=== PATIENT | female | born 1985 | race Caucasian/White ===

== ENCOUNTER 2016-06-14 14:31 | Emergency (ER) | payer SELFPAY ==
[2016-06-14] MEDS ORDERED: NS 2,000 ML IV ONE (14:54)
[2016-06-14] MEDS ORDERED: IBUPROFEN 200 MG TAB PO ONE (14:54)
[2016-06-14] MEDS ORDERED: ACETAMINOPHEN 500 MG TAB PO ONE (14:54)
--- NOTE | 2016-06-14 14:56 | EDPHY ---
H & P - Medical/Surgical History Other PMH: denies - Social History Smoking Status: Never smoked Time Seen by Provider: 06/14/16 14:46 HPI/ROS: CHIEF COMPLAINT: Abdominal pain, flank pain, fever x5 days HISTORY OF PRESENT ILLNESS: 30-year-old immunocompetent female, history of frequent UTIs, complaining of 5 days of fever, right lower, right upper quadrant as well as right flank pain. Positive nausea. No vomiting. No dyspareunia. No dysuria. No increased frequency. Pain started when she was in [place], was seen at an urgent care while there for concerns over possible appendicitis. No imaging studies performed at that time. She was seen at [facility] today and referred to the emergency department for evaluation of possible appendicitis or ovarian pathology PRIMARY CARE PROVIDER: none REVIEW OF SYSTEMS: A ten point review of systems was performed and is negative with the exception of the items mentioned in the HPI PAST MEDICAL & SURGICAL HISTORY: frequent UTI SOCIAL HISTORY: nonsmoker PHYSICAL EXAM (Prior to examination, patient consented to physical exam, hands were washed and my usual and customary physical exam procedures followed) 1) GENERAL: Well-developed, well-nourished, alert and oriented. Appears nontoxic 2) HEAD: Normocephalic, atraumatic 3) HEENT: Pupils equal, round, reactive to light bilaterally. Sclera anicteric. 4) NECK: Full range of motion, no meningeal signs. 5) LUNGS: Clear auscultation bilaterally, no wheezes, no rhonchi, no retractions. 6) HEART: Regular rate and rhythm, no murmur, no heave, no gallop. 7) ABDOMEN: guarding right upper quadrant, tender to palpation right lower quadrant with positive McBurney's, tender to palpation right upper quadrant positive Robertson's. negative Rovsing's, negative peritoneal sign, 8) MUSCULOSKELETAL: Moving all extremities, no focal areas of tenderness, no obvious trauma. No peripheral edema or discoloration. 9) BACK: Positive rightCVA tenderness, no midline vertebral tenderness, no fluctuance, no step-off, no obvious trauma, no visual or palpable abnormality. 10) SKIN: No rash, no petechiae. 11) Psychiatric: Patient is oriented X 3, there is no agitation. DIFFERENTIAL DIAGNOSIS: My differential diagnosis includes, but is not limited to, acute appendicitis, acute cholecystitis, bowel obstruction, acute pancreatitis, ovarian torsion, nephrolithiasis, pyelonephritis,ectopic , gastritis and urinary tract infection. The patient understands that this diagnosis is provisional and can never be 100% accurate. This is a partial list of diagnoses considered. These considerations are based on history , physical exam, past history and reassessment. (Ernesto Nassar) Constitutional: Initial Vital Signs Temperature (C) 39 C H 06/14/16 14:50 Heart Rate 104 H 06/14/16 14:50 Respiratory Rate 18 06/14/16 14:50 Blood Pressure 129/72 H 06/14/16 14:50 O2 Sat (%) 99 06/14/16 14:50 O2 Delivery Mode Room Air Allergies/Adverse Reactions: Sulfa (Sulfonamide Antibiotics) Allergy (Verified 08/30/14 19:51) Home Medications: Medication Instructions Recorded Azo Bladder Control Capsule 08/30/14 Nitrofurantoin Macrobid [Macrobid] 100 mg PO BID #14 cap 08/30/14 Cephalexin [Keflex] 500 mg PO TID 7 Days 06/14/16 Medical Decision Making - Diagnostics Imaging Results: Imaging Impressions Abdomen Ultrasound 06/14/16 14:57 Impression: 1. No cholelithiasis or biliary ductal dilation. 2. Hepatomegaly and hepatic steatosis. 3. No hydronephrosis. 4. Appendix not identified. Consider CT abdomen/pelvis imaging if clinical concern. Findings and recommendations discussed with Emergency Department physicianErnesto at 16:26 hour, 06/14/2016. Final report concurs with initial preliminary interpretation. Pelvic/Renal Ultrasound 06/14/16 14:57 Impression: Normal ultrasound pelvis. Findings and recommendations discussed with Emergency Department physicianErnesto at 16:27 hour, 06/14/2016. Final report concurs with initial preliminary interpretation. Abdomen CT 06/14/16 16:29 Impression: 1. Right pyelonephritis without obstruction or cortical abscess. 2. Hepatomegaly with diffuse steatosis. 3. Normal vermiform appendix. Results discussed with Sage Lancaster at 5:07 PM. General information for patients regarding this examination can be found at [email or web address]. If you have questions or comments about this report, please contact me at (hospital) or [phone] (cell). CT abdomen and pelvis with IV contrast shows no kidney stone. There is edema in the fat around the right kidney. Normal appendix. This is reviewed by me and discussed with Dr. Hollingsworth (Sage Lancaster) ED Course/Re-evaluation: 4:30 p.m.: Patient re-evaluated. Discussed her imaging results. She has a nonvisualized appendix. Re-examined the patient she remains tender to palpation McBurney's point. Recommended CT imaging. Indications risks benefits discussed with patient she consents. 5:00 p.m.: Care turned over to Dr. Lancaster who will follow up on the patient's CT imaging. (Ernesto Nassar) Re-evaluation 5:10 p.m.--patient is stable. She feels well enough to go home. She and I discussed laboratory and imaging study results. We discussed treatment plan including criteria for return and importance of follow-up and further evaluation. She expresses understanding and agreement (Sage Lancaster) Differential Diagnosis: The concern was for possible appendicitis. She has a normal appendix. There is no evidence for kidney stone. She has evidence for pyelonephritis both in imaging and laboratory evaluation (Sage Lancaster) - Data Points Laboratory Results: Laboratory Results 06/14/16 15:02 06/14/16 15:02 06/14/16 06/14/16 06/14/16 15:50 15:02 15:02 WBC RBC Hgb Hct MCV MCH MCHC RDW Plt Count MPV Neut % (Auto) Lymph % (Auto) [place] % (Auto) Eos % (Auto) Baso % (Auto) Nucleat RBC Rel Count Absolute Neuts (auto) Absolute Lymphs (auto) Absolute Monos (auto) Absolute Eos (auto) Absolute Basos (auto) Absolute Nucleated RBC Immature Gran % Immature Gran # PT INR APTT VBG Lactic Acid Sodium 135 mEq/L mEq/L (134-144) Potassium 4.0 mEq/L mEq/L (3.5-5.2) Chloride 99 mEq/L mEq/L (97-110) Carbon Dioxide 22 mEq/l mEq/l (22-31) Anion Gap 14 mEq/L mEq/L (8-16) BUN 7 mg/dL mg/dL (7-23) Creatinine 0.7 mg/dL mg/dL (0.6-1.0) Estimated GFR > 60 Glucose 105 mg/dL H mg/dL (70-100) Calcium 9.2 mg/dL mg/dL (8.5-10.4) Total Bilirubin 1.0 mg/dL mg/dL (0.1-1.4) Conjugated Bilirubin 0.5 mg/dL mg/dL (0.0-0.5) Unconjugated Bilirubin 0.5 mg/dL mg/dL (0.0-1.1) AST 49 IU/L H IU/L (14-46) ALT 100 IU/L H IU/L (9-52) Alkaline Phosphatase 71 IU/L IU/L (38-126) Total Protein 7.3 g/dL g/dL (6.3-8.2) Albumin 4.3 g/dL g/dL (3.5-5.0) Lipase 23.0 IU/L IU/L (23-300) Beta HCG, Qual NEGATIVE Urine Color YELLOW Urine Appearance CLEAR Urine pH 6.0 (5.0-7.5) Ur Specific [place] 1.005 (1.002-1.030) Urine Protein NEGATIVE (NEGATIVE) Urine Ketones TRACE H (NEGATIVE) Urine Blood 1+ H (NEGATIVE) Urine Nitrate NEGATIVE (NEGATIVE) Urine Bilirubin NEGATIVE (NEGATIVE) Urine Urobilinogen NEGATIVE EU EU (0.2-1.0) Ur Leukocyte Esterase 1+ H (NEGATIVE) Urine RBC 1-3 /hpf /hpf (0-3) Urine WBC 15-25 /hpf H /hpf (0-3) Ur Epithelial Cells TRACE /lpf /lpf (NONE-1+) Urine Bacteria 3+ /hpf H /hpf (NONE SEEN) Urine Glucose NEGATIVE (NEGATIVE) 06/14/16 06/14/16 06/14/16 15:02 15:02 15:02 WBC 10.27 10^3/uL H 10^3/uL (3.80-9.50) RBC 4.05 10^6/uL L 10^6/uL (4.18-5.33) Hgb 13.1 g/dL g/dL (12.6-16.3) Hct 38.6 % % (38.0-47.0) MCV 95.3 fL fL (81.5-99.8) MCH 32.3 pg pg (27.9-34.1) MCHC 33.9 g/dL g/dL (32.4-36.7) RDW 12.4 % % (11.5-15.2) Plt Count 132 10^3/uL L 10^3/uL (150-400) MPV 9.5 fL fL (8.7-11.7) Neut % (Auto) 72.2 % % (39.3-74.2) Lymph % (Auto) 11.5 % L % (15.0-45.0) [place] % (Auto) 15.2 % H % (4.5-13.0) Eos % (Auto) 0.1 % L % (0.6-7.6) Baso % (Auto) 0.2 % L % (0.3-1.7) Nucleat RBC Rel Count 0.0 % % (0.0-0.2) Absolute Neuts (auto) 7.42 10^3/uL H 10^3/uL (1.70-6.50) Absolute Lymphs (auto) 1.18 10^3/uL 10^3/uL (1.00-3.00) Absolute Monos (auto) 1.56 10^3/uL H 10^3/uL (0.30-0.80) Absolute Eos (auto) 0.01 10^3/uL L 10^3/uL (0.03-0.40) Absolute Basos (auto) 0.02 10^3/uL 10^3/uL (0.02-0.10) Absolute Nucleated RBC 0.00 10^3/uL 10^3/uL (0-0.01) Immature Gran % 0.8 % % (0.0-1.1) Immature Gran # 0.08 10^3/uL 10^3/uL (0.00-0.10) PT 13.6 SEC SEC (12.0-15.0) INR 1.05 (0.83-1.16) APTT 32.6 SEC SEC (23.0-38.0) VBG Lactic Acid 1.0 mmol/L mmol/L (0.7-2.1) Sodium Potassium Chloride Carbon Dioxide Anion Gap BUN Creatinine Estimated GFR Glucose Calcium Total Bilirubin Conjugated Bilirubin Unconjugated Bilirubin AST ALT Alkaline Phosphatase Total Protein Albumin Lipase Beta HCG, Qual Urine Color Urine Appearance Urine pH Ur Specific [place] Urine Protein Urine Ketones Urine Blood Urine Nitrate Urine Bilirubin Urine Urobilinogen Ur Leukocyte Esterase Urine RBC Urine WBC Ur Epithelial Cells Urine Bacteria Urine Glucose Medications Given: Discontinued Medications Acetaminophen (Tylenol) 1,000 mg PO EDNOW ONE Stop: 06/14/16 14:55 Last Admin: 06/14/16 15:14 Dose: 1,000 mg Sodium Chloride (Ns) 2,000 mls @ 0 mls/hr IV ONCE ONE PRN Reason: Wide Open Stop: 06/14/16 14:55 Last Admin: 06/14/16 15:07 Dose: 2,000 mls Ceftriaxone Sodium/Dextrose (Rocephin 1 Gm (Premix)) 50 mls @ 100 mls/hr IV EDNOW ONE PRN Reason: Protocol Stop: 06/14/16 16:45 Last Admin: 06/14/16 16:32 Dose: 50 mls Ibuprofen (Motrin) 800 mg PO EDNOW ONE Stop: 06/14/16 14:55 Last Admin: 06/14/16 15:14 Dose: 800 mg Departure - Departure Disposition: Home, Routine, Self-Care Clinical Impression: Urinary tract infection Qualifiers: Urinary tract infection type: acute cystitis Hematuria presence: with hematuria Qualified Code(s): N30.01 - Acute cystitis with hematuria Condition: Good Instructions: Urinary Tract Infection in Women (ED) Additional Instructions: Return to the ER immediately if you experience fevers/chills, flu like symptoms , inability to tolerate oral intake, nausea or vomiting, or any other symptoms that concern you. Referrals: [facility],. [Clinic] - 1 day without fail Prescriptions: Cephalexin [Keflex] 500 mg PO TID 7 Days
[2016-06-14 15:19] LABS: % IMMATURE GRANULYOCYTES 0.8 % (0.0-1.1); ABSOLUTE IMMATURE GRANULOCYTES 0.08 10^3/uL (0.00-0.10); ADD DIFF? NO; ADD MORPH? NO; ADD SCAN? NO; ATYPICAL LYMPHOCYTE FLAG 0 (0-99); FRAGMENT RBC FLAG 0 (0-99); HEMATOCRIT 38.6 % (38.0-47.0); HEMOGLOBIN 13.1 g/dL (12.6-16.3); LEFT SHIFT FLG 30 (0-99); LIPEMIA HEMOLYSIS FLAG 90 (0-99); MEAN CELL HEMOGLOBIN 32.3 pg (27.9-34.1); MEAN CELL HEMOGLOBIN CONCENTR. 33.9 g/dL (32.4-36.7); MEAN CELL VOLUME 95.3 fL (81.5-99.8); MEAN PLATELET VOLUME 9.5 fL (8.7-11.7); PLATELET CLUMPS FLAG 10 (0-99); PLATELET COUNT 132 10^3/uL (150-400); RED BLOOD CELL COUNT 4.05 10^6/uL (4.18-5.33); RED CELL DISTRIBUTION WIDTH 12.4 % (11.5-15.2)
[2016-06-14 15:43] LABS: INR 1.05 (0.83-1.16); PROTIME(PATIENT) 13.6 SEC (12.0-15.0)
[2016-06-14 15:44] LABS: APTT 32.6 SEC (23.0-38.0)
[2016-06-14 15:47] LABS: ALANINE AMINOTRANSFERASE 100 IU/L (9-52); ALBUMIN 4.3 g/dL (3.5-5.0); ALKALINE PHOSPHATASE 71 IU/L (38-126); ANION GAP 14 mEq/L (8-16); ASPARTATE AMINOTRANSFERASE 49 IU/L (14-46); BILIRUBIN-CONJUGATED 0.5 mg/dL (0.0-0.5); BILIRUBIN-UNCONJUGATED 0.5 mg/dL (0.0-1.1); CALCIUM 9.2 mg/dL (8.5-10.4); CARBON DIOXIDE 22 mEq/l (22-31); CHLORIDE 99 mEq/L (97-110); CREATININE 0.7 mg/dL (0.6-1.0); GLOMERULAR FILTRATION RATE > 60; GLUCOSE 105 mg/dL (70-100); SODIUM 135 mEq/L (134-144); TOTAL PROTEIN 7.3 g/dL (6.3-8.2)
[2016-06-14 16:02] LABS: COLOR YELLOW; LEUKOCYTE ESTERASE,URINE 1+ (NEGATIVE); NITRITE,URINE NEGATIVE (NEGATIVE)
[2016-06-14 16:08] LABS: BACTERIA 3+ /hpf (NONE SEEN); WBC,URINE 15-25 /hpf (0-3)
[2016-06-14 16:11] VITALS: RESP 16
[2016-06-14] MEDS ORDERED: IOPAMIDOL (ISOVUE-300) 100 ML BTL IV ONE (16:38)
[2016-06-14 17:26] VITALS: BP 104/65; PULSE 84; TEMP 99.3; O2SAT 96
== END 2016-06-14 17:26 | disposition home or self-care (01) ==
DX: N30.01 Acute cystitis with hematuria (principal); B96.89 Other specified bacterial agents as the cause of diseases classified elsewhere
CPT/HCPCS: 96365; J0696; Q9967

== ENCOUNTER 2016-09-13 14:45 | Emergency (ER) | payer MEDICAID ==
[2016-09-13] MEDS ORDERED: ONDANSETRON 4 MG/2 ML VIAL IVP ONE (16:13)
--- NOTE | 2016-09-13 16:16 | CPEKG ---
Heart Rate: 58 RR Interval: 1034 P-R Interval: 132 QRSD Interval: 84 QT Interval: 452 QTC Interval: 445 P [place]: 22 QRS [place]: 51 T Wave [place]: 43 EKG Severity - NORMAL ECG - EKG Impression: SINUS RHYTHM Electronically Signed By: Sage Lancaster 13-Sep-2016 23:47:41
--- NOTE | 2016-09-13 16:17 | EDPHY ---
H & P Time Seen by Provider: 09/13/16 15:59 HPI/ROS: CHIEF COMPLAINT: Epigastric pain with nausea HISTORY OF PRESENT ILLNESS: This is a 30-year-old female presenting to the emergency department complaining of intermittent epigastric pain with nausea x1 month. Patient states she noticed the initial episodes after they had been camping in the [facility] beginning of this month. Patient states that when she gets the pain it is more worse when she lays down and in the morning she is cautious about what she eats because she is afraid she is going to throw up, but for the most part throughout the days she is able to tolerate p.o. intake but has these intermittent episodes of vomiting sometimes the vomit is bilious. Denies any diarrhea pain does not radiate to her chest, she states that on occasion previously she has had intermittent face tingling and hand tingling she was told that she had some hypokalemia so she takes potassium on a daily basis. Denies any headache chest pain or shortness of breath REVIEW OF SYSTEMS: Constitutional: No fever, no chills. Decreased p.o. intake Eyes: No discharge. No blurred vision ENT: No sore throat. Cardiovascular: No chest pain, no palpitations. Respiratory: No cough, no shortness of breath. Gastrointestinal: Intermittent epigastric pain with intermittent nausea vomiting. No diarrhea. Normal bowel movements Genitourinary: No hematuria. Urinary discomfort Musculoskeletal: No back pain. Skin: No rashes. Neurological: No headache. Smoking Status: Never smoked Physical Exam: General Appearance: Alert, no distress. Eyes: Pupils equal and round no pallor or injection. ENT, Mouth: Mucous membranes moist. Respiratory: There are no retractions, lungs are clear to auscultation. Cardiovascular: Regular rate and rhythm. Gastrointestinal: Abdomen is soft, nondistended. Epigastric tenderness on palpation. no masses, bowel sounds normal. Neurological: No focal deficits answering questions appropriately Skin: Warm and dry, no rashes. Musculoskeletal: Neck is supple nontender. Extremities: symmetrical, full range of motion. Psychiatric: Patient is oriented X 3, acting appropriately Constitutional: Initial Vital Signs Temperature (C) 36.9 C 09/13/16 14:54 Heart Rate 70 09/13/16 14:54 Respiratory Rate 18 09/13/16 14:54 Blood Pressure 114/78 09/13/16 14:54 O2 Sat (%) 100 09/13/16 14:54 O2 Delivery Mode Room Air Allergies/Adverse Reactions: Sulfa (Sulfonamide Antibiotics) Allergy (Verified 08/30/14 19:51) Home Medications: Medication Instructions Recorded Potassium 09/13/16 Medical Decision Making ED Course/Re-evaluation: Discussed ED plan of care: CBC, BMP, UA, EKG. Will review previous visit records 1730: Patient re-evaluation patient states "feeling better", reviewed all lab results with patient. Discussed following up with a primary care provider this week, and/or GI for further evaluation of GERD. Discharge home---> stable, discussed all discharge instructions with patient Differential Diagnosis: Other differential diagnosis considered but not limited to electrolyte abnormalities, UTI, gastroenteritis, and gastritis - Data Points Laboratory Results: Laboratory Results 09/13/16 16:55 09/13/16 16:25 09/13/16 09/13/16 09/13/16 16:55 16:25 16:25 WBC 5.98 10^3/uL 10^3/uL (3.80-9.50) RBC 3.92 10^6/uL L 10^6/uL (4.18-5.33) Hgb 12.9 g/dL g/dL (12.6-16.3) Hct 36.9 % L % (38.0-47.0) MCV 94.1 fL fL (81.5-99.8) MCH 32.9 pg pg (27.9-34.1) MCHC 35.0 g/dL g/dL (32.4-36.7) RDW 11.9 % % (11.5-15.2) Plt Count 126 10^3/uL L 10^3/uL (150-400) MPV 10.3 fL fL (8.7-11.7) Neut % (Auto) 58.3 % % (39.3-74.2) Lymph % (Auto) 30.9 % % (15.0-45.0) [place] % (Auto) 8.5 % % (4.5-13.0) Eos % (Auto) 1.3 % % (0.6-7.6) Baso % (Auto) 0.7 % % (0.3-1.7) Nucleat RBC Rel Count 0.0 % % (0.0-0.2) Absolute Neuts (auto) 3.48 10^3/uL 10^3/uL (1.70-6.50) Absolute Lymphs (auto) 1.85 10^3/uL 10^3/uL (1.00-3.00) Absolute Monos (auto) 0.51 10^3/uL 10^3/uL (0.30-0.80) Absolute Eos (auto) 0.08 10^3/uL 10^3/uL (0.03-0.40) Absolute Basos (auto) 0.04 10^3/uL 10^3/uL (0.02-0.10) Absolute Nucleated RBC 0.00 10^3/uL 10^3/uL (0-0.01) Immature Gran % 0.3 % % (0.0-1.1) Immature Gran # 0.02 10^3/uL 10^3/uL (0.00-0.10) Sodium Potassium Chloride Carbon Dioxide Anion Gap BUN Creatinine Estimated GFR Glucose Calcium Lipase Beta HCG, Qual NEGATIVE Urine Color YELLOW Urine Appearance CLEAR Urine pH 7.0 (5.0-7.5) Ur Specific [place] 1.023 (1.002-1.030) Urine Protein 1+ H (NEGATIVE) Urine Ketones TRACE H (NEGATIVE) Urine Blood NEGATIVE (NEGATIVE) Urine Nitrate NEGATIVE (NEGATIVE) Urine Bilirubin NEGATIVE (NEGATIVE) Urine Urobilinogen 4.0 EU H EU (0.2-1.0) Ur Leukocyte Esterase NEGATIVE (NEGATIVE) Urine RBC 1-3 /hpf /hpf (0-3) Urine WBC 1-3 /hpf /hpf (0-3) Ur Epithelial Cells TRACE /lpf /lpf (NONE-1+) Urine Mucus TRACE /lpf /lpf (NONE-1+) Urine Sperm PRESENT /hpf H /hpf (NONE SEEN) Urine Glucose NEGATIVE (NEGATIVE) 09/13/16 09/13/16 16:25 16:25 WBC REJ RBC Not Reported Hgb Not Reported Hct Not Reported MCV Not Reported MCH Not Reported MCHC Not Reported RDW Not Reported Plt Count Not Reported MPV Not Reported Neut % (Auto) Not Reported Lymph % (Auto) Not Reported [place] % (Auto) Not Reported Eos % (Auto) Not Reported Baso % (Auto) Not Reported Nucleat RBC Rel Count Not Reported Absolute Neuts (auto) Not Reported Absolute Lymphs (auto) Not Reported Absolute Monos (auto) Not Reported Absolute Eos (auto) Not Reported Absolute Basos (auto) Not Reported Absolute Nucleated RBC Not Reported Immature Gran % Not Reported Immature Gran # Not Reported Sodium 138 mEq/L mEq/L (134-144) Potassium 4.0 mEq/L mEq/L (3.5-5.2) Chloride 102 mEq/L mEq/L (97-110) Carbon Dioxide 19 mEq/l L mEq/l (22-31) Anion Gap 17 mEq/L H mEq/L (8-16) BUN 12 mg/dL mg/dL (7-23) Creatinine 0.6 mg/dL mg/dL (0.6-1.0) Estimated GFR > 60 Glucose 78 mg/dL mg/dL (70-100) Calcium 9.6 mg/dL mg/dL (8.5-10.4) Lipase 63.0 IU/L IU/L (23-300) Beta HCG, Qual Urine Color Urine Appearance Urine pH Ur Specific [place] Urine Protein Urine Ketones Urine Blood Urine Nitrate Urine Bilirubin Urine Urobilinogen Ur Leukocyte Esterase Urine RBC Urine WBC Ur Epithelial Cells Urine Mucus Urine Sperm Urine Glucose Medications Given: Discontinued Medications Famotidine (Pepcid) 20 mg IVP EDNOW ONE Stop: 09/13/16 17:26 Last Admin: 09/13/16 17:37 Dose: 20 mg Sodium Chloride (Ns) 1,000 mls @ 0 mls/hr IV ONCE ONE PRN Reason: Wide Open Stop: 09/13/16 17:25 Last Admin: 09/13/16 17:37 Dose: 1,000 mls Ondansetron HCl (Zofran) 4 mg IVP EDNOW ONE Stop: 09/13/16 16:14 Last Admin: 09/13/16 16:29 Dose: 4 mg Departure - Departure Disposition: Home, Routine, Self-Care Clinical Impression: Epigastric abdominal pain GERD (gastroesophageal reflux disease) Qualifiers: Esophagitis presence: without esophagitis Qualified Code(s): K21.9 - Gastro- esophageal reflux disease without esophagitis Condition: Good Instructions: Gastroesophageal Reflux Disease (ED) Additional Instructions: 1. I would recommend taking Pepcid 20 mg in the morning 30 minutes before meal , 20 mg in the evening 30 minutes prior to curtis 2. Decrease acidic foods and drinks, decrease caffeine 3. Follow up with your primary care provider or GI Referrals: [facility] [Other] - As per Instructions
[2016-09-13 16:42] LABS: COLOR YELLOW; LEUKOCYTE ESTERASE,URINE NEGATIVE (NEGATIVE); NITRITE,URINE NEGATIVE (NEGATIVE)
[2016-09-13 16:48] LABS: ANION GAP 17 mEq/L (8-16); CALCIUM 9.6 mg/dL (8.5-10.4); CARBON DIOXIDE 19 mEq/l (22-31); CHLORIDE 102 mEq/L (97-110); CREATININE 0.6 mg/dL (0.6-1.0); GLOMERULAR FILTRATION RATE > 60; GLUCOSE 78 mg/dL (70-100); MUCUS TRACE /lpf (NONE-1+); SODIUM 138 mEq/L (134-144)
[2016-09-13 17:06] LABS: % IMMATURE GRANULYOCYTES 0.3 % (0.0-1.1); ABSOLUTE IMMATURE GRANULOCYTES 0.02 10^3/uL (0.00-0.10); ADD DIFF? NO; ADD MORPH? NO; ADD SCAN? NO; ATYPICAL LYMPHOCYTE FLAG 20 (0-99); FRAGMENT RBC FLAG 0 (0-99); HEMATOCRIT 36.9 % (38.0-47.0); HEMOGLOBIN 12.9 g/dL (12.6-16.3); LEFT SHIFT FLG 0 (0-99); LIPEMIA HEMOLYSIS FLAG 90 (0-99); MEAN CELL HEMOGLOBIN 32.9 pg (27.9-34.1); MEAN CELL VOLUME 94.1 fL (81.5-99.8); MEAN PLATELET VOLUME 10.3 fL (8.7-11.7); PLATELET CLUMPS FLAG 0 (0-99); PLATELET COUNT 126 10^3/uL (150-400); RED BLOOD CELL COUNT 3.92 10^6/uL (4.18-5.33); RED CELL DISTRIBUTION WIDTH 11.9 % (11.5-15.2)
[2016-09-13] MEDS ORDERED: NS 1,000 ML IV ONE (17:24)
[2016-09-13] MEDS ORDERED: FAMOTIDINE 20 MG/2 ML SDV IVP ONE (17:25)
[2016-09-13 17:39] VITALS: O2SAT 98
[2016-09-13 19:21] VITALS: BP 101/65; PULSE 60; RESP 16; TEMP 99
== END 2016-09-13 17:56 | disposition home or self-care (01) ==
DX: K21.9 Gastro-esophageal reflux disease without esophagitis (principal); R11.2 Nausea with vomiting, unspecified
CPT/HCPCS: 96374; J2405

== ENCOUNTER 2016-10-29 10:05 | Emergency (ER) | payer MEDICAID ==
[2016-10-29] MEDS ORDERED: NS 1,000 ML IV ONE (10:23)
[2016-10-29] MEDS ORDERED: ONDANSETRON 4 MG/2 ML VIAL IVP ONE (10:23)
[2016-10-29] MEDS ORDERED: LORazepam 2 MG/ML INJ IVP ONE (10:42)
--- NOTE | 2016-10-29 10:42 | EDPHY ---
H & P Time Seen by Provider: 10/29/16 10:23 HPI/ROS: Chief complaint. Nausea and vomiting HPI. 31-year-old female presents emergency department with nausea and vomiting for 2 days. She was seen at [facility] on 10/27 with diagnosis of Bartholin cyst and Gardnerella vaginitis. Trich and GC cultures were negative. She took her 1st antibiotic and then has been vomiting. No abdominal pain. She had small amount of blood in the toilet and wonders if her Bartholin cyst has ruptured. She had been prescribed Flagyl and doxycycline. No fever, chest discomfort, shortness of breath. Feels somewhat shaky ROS Constitutional. Shaky Eyes. no problems with vision ENT. no sore throat, no nasal drainage Cardiovascular. no chest pain Respiratory. no shortness of breath, no cough Abdominal. No abdominal pain but nausea and vomiting; pain left labia from swelling a Bartholin's cyst . Decreased urination MS. no calf pain/swelling, no neck/back pain, no joint pain Skin. no rash Lymph. no swollen glands Neuro. no headache, no dizziness, no difficulty walking or with speech Past Medical/Surgical History: UTI, GERD Social History: , nonsmoker, no alcohol Smoking Status: Never smoked Physical Exam: General Appearance: Alert well-developed female mild distress vital signs are stable Eyes: Pupils equal and round no pallor or injection. ENT, Mouth: Mucous membranes are moist. Respiratory: There are no retractions, lungs are clear to auscultation. Cardiovascular: Regular rate and rhythm. Gastrointestinal: Abdomen is soft and nontender, no masses, bowel sounds normal. Mild swelling to the left labia without obvious abscess. No erythema. In the area of Bartholin gland Neurological: Awake and alert, sensory and motor exams grossly normal. Slightly tremulous Skin: Warm and dry, no rashes. Musculoskeletal: Neck is supple nontender. Extremities symmetrical, full range of motion. Psychiatric: Patient is oriented X 3, there is no agitation. Constitutional: Initial Vital Signs Temperature (C) 36.8 C 10/29/16 10:10 Heart Rate 80 10/29/16 10:10 Respiratory Rate 16 10/29/16 10:10 Blood Pressure 121/73 H 10/29/16 10:10 O2 Sat (%) 98 10/29/16 10:10 O2 Delivery Mode Room Air Allergies/Adverse Reactions: Sulfa (Sulfonamide Antibiotics) Allergy (Verified 08/30/14 19:51) Home Medications: Medication Instructions Recorded Doxycycline Monohydrate 10/29/16 Metronidazole 10/29/16 Nitrofurantoin Macrobid [Macrobid] 100 mg PO BID #14 cap 10/29/16 Ondansetron Odt [Zofran Odt] 4 mg PO Q4PRN PRN #4 tab 10/29/16 Ortho Tri-Cyclen Lo Tablet 10/29/16 metroNIDAZOLE 0.75% [Vandazole 1 homa VG HS #1 tube 10/29/16 Vaginal Gel] Medical Decision Making Procedures: IV normal saline. Zofran and Ativan IV ED Course/Re-evaluation: Re-evaluation 11:30 a.m.--stable Patient is stable re-evaluation 2:00 p.m..--patient taking fluids without nausea vomiting. She has been up to urinate. She has a urinary tract infection. We discussed treatment plan including criteria for return importance of follow-up further evaluation. She expresses understanding and agreement. We discussed stopping the doxycycline and Flagyl for now. We will substitute Flagyl cream. 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 Differential Diagnosis: I suspect that the nausea vomiting secondary to medication. The Bartholin cyst is not large or inflamed or obvious abscess. She has Gardnerella vaginitis and we will treat this with intravaginal Flagyl. We will use nitrofurantoin as antibiotic for her urinary tract infection. - Data Points Laboratory Results: Laboratory Results 10/29/16 10:30 10/29/16 10:30 10/29/16 10/29/16 10/29/16 13:30 10:30 10:30 WBC RBC Hgb Hct MCV MCH MCHC RDW Plt Count MPV Neut % (Auto) Lymph % (Auto) [place] % (Auto) Eos % (Auto) Baso % (Auto) Nucleat RBC Rel Count Absolute Neuts (auto) Absolute Lymphs (auto) Absolute Monos (auto) Absolute Eos (auto) Absolute Basos (auto) Absolute Nucleated RBC Immature Gran % Immature Gran # Sodium 139 mEq/L mEq/L (134-144) Potassium 3.7 mEq/L mEq/L (3.5-5.2) Chloride 99 mEq/L mEq/L (97-110) Carbon Dioxide 16 mEq/l L mEq/l (22-31) Anion Gap 24 mEq/L H mEq/L (8-16) BUN 14 mg/dL mg/dL (7-23) Creatinine 0.7 mg/dL mg/dL (0.6-1.0) Estimated GFR > 60 Glucose 71 mg/dL mg/dL (70-100) Calcium 10.0 mg/dL mg/dL (8.5-10.4) Beta HCG, Qual NEGATIVE Urine Color YELLOW Urine Appearance HAZY Urine pH 6.0 (5.0-7.5) Ur Specific [place] 1.020 (1.002-1.030) Urine Protein NEGATIVE (NEGATIVE) Urine Ketones 2+ H (NEGATIVE) Urine Blood 2+ H (NEGATIVE) Urine Nitrate NEGATIVE (NEGATIVE) Urine Bilirubin NEGATIVE (NEGATIVE) Urine Urobilinogen NEGATIVE EU EU (0.2-1.0) Ur Leukocyte Esterase 1+ H (NEGATIVE) Urine RBC 5-10 /hpf H /hpf (0-3) Urine WBC 15-25 /hpf H /hpf (0-3) Ur Epithelial Cells TRACE /lpf /lpf (NONE-1+) Hyaline Casts 1-5 /lpf /lpf (0-1) Urine Mucus TRACE /lpf /lpf (NONE-1+) Urine Glucose NEGATIVE (NEGATIVE) 10/29/16 10:30 WBC 7.96 10^3/uL 10^3/uL (3.80-9.50) RBC 4.16 10^6/uL L 10^6/uL (4.18-5.33) Hgb 13.8 g/dL g/dL (12.6-16.3) Hct 40.3 % % (38.0-47.0) MCV 96.9 fL fL (81.5-99.8) MCH 33.2 pg pg (27.9-34.1) MCHC 34.2 g/dL g/dL (32.4-36.7) RDW 11.8 % % (11.5-15.2) Plt Count 128 10^3/uL L 10^3/uL (150-400) MPV 9.5 fL fL (8.7-11.7) Neut % (Auto) 78.6 % H % (39.3-74.2) Lymph % (Auto) 14.6 % L % (15.0-45.0) [place] % (Auto) 5.9 % % (4.5-13.0) Eos % (Auto) 0.0 % L % (0.6-7.6) Baso % (Auto) 0.4 % % (0.3-1.7) Nucleat RBC Rel Count 0.0 % % (0.0-0.2) Absolute Neuts (auto) 6.26 10^3/uL 10^3/uL (1.70-6.50) Absolute Lymphs (auto) 1.16 10^3/uL 10^3/uL (1.00-3.00) Absolute Monos (auto) 0.47 10^3/uL 10^3/uL (0.30-0.80) Absolute Eos (auto) 0.00 10^3/uL L 10^3/uL (0.03-0.40) Absolute Basos (auto) 0.03 10^3/uL 10^3/uL (0.02-0.10) Absolute Nucleated RBC 0.00 10^3/uL 10^3/uL (0-0.01) Immature Gran % 0.5 % % (0.0-1.1) Immature Gran # 0.04 10^3/uL 10^3/uL (0.00-0.10) Sodium Potassium Chloride Carbon Dioxide Anion Gap BUN Creatinine Estimated GFR Glucose Calcium Beta HCG, Qual Urine Color Urine Appearance Urine pH Ur Specific [place] Urine Protein Urine Ketones Urine Blood Urine Nitrate Urine Bilirubin Urine Urobilinogen Ur Leukocyte Esterase Urine RBC Urine WBC Ur Epithelial Cells Hyaline Casts Urine Mucus Urine Glucose Medications Given: Discontinued Medications Sodium Chloride (Ns) 1,000 mls @ 0 mls/hr IV ONCE ONE PRN Reason: Wide Open Stop: 10/29/16 10:24 Last Admin: 10/29/16 10:38 Dose: 1,000 mls Lorazepam (Ativan Injection) 0.5 mg IVP EDNOW ONE Stop: 10/29/16 10:43 Last Admin: 10/29/16 10:50 Dose: 0.5 mg Ondansetron HCl (Zofran) 4 mg IVP EDNOW ONE Stop: 10/29/16 10:24 Last Admin: 10/29/16 10:38 Dose: 4 mg Departure - Departure Disposition: Home, Routine, Self-Care Clinical Impression: Urinary tract infection Qualifiers: Urinary tract infection type: acute cystitis Hematuria presence: without hematuria Qualified Code(s): N30.00 - Acute cystitis without hematuria Condition: Good Instructions: Urinary Tract Infection in Women (ED) Additional Instructions: Frequent, small sips fluids well nauseated. Gradual diet advancement. Zofran as needed for nausea and vomiting. Discontinue oral metronidazole and doxycycline. Substitute metronidazole gel using 1 applicator intravaginally at bedtime for the next 5 days. Nitrofurantoin as antibiotic for urinary tract infection. Return for worsening symptoms. Keep your follow-up appointment on Monday. Referrals: NOT,SURE [Other] - As per Instructions Prescriptions: metroNIDAZOLE 0.75% [Vandazole Vaginal Gel] 1 homa VG HS #1 tube Nitrofurantoin Macrobid [Macrobid] 100 mg PO BID #14 cap Ondansetron Odt [Zofran Odt] 4 mg PO Q4PRN PRN #4 tab PRN Reason: Nausea/Vomiting, Use 1st
[2016-10-29 10:48] LABS: % IMMATURE GRANULYOCYTES 0.5 % (0.0-1.1); ABSOLUTE IMMATURE GRANULOCYTES 0.04 10^3/uL (0.00-0.10); ADD DIFF? NO; ADD MORPH? NO; ADD SCAN? NO; ATYPICAL LYMPHOCYTE FLAG 0 (0-99); FRAGMENT RBC FLAG 0 (0-99); HEMATOCRIT 40.3 % (38.0-47.0); HEMOGLOBIN 13.8 g/dL (12.6-16.3); LEFT SHIFT FLG 0 (0-99); LIPEMIA HEMOLYSIS FLAG 90 (0-99); MEAN CELL HEMOGLOBIN 33.2 pg (27.9-34.1); MEAN CELL HEMOGLOBIN CONCENTR. 34.2 g/dL (32.4-36.7); MEAN CELL VOLUME 96.9 fL (81.5-99.8); MEAN PLATELET VOLUME 9.5 fL (8.7-11.7); PLATELET CLUMPS FLAG 0 (0-99); PLATELET COUNT 128 10^3/uL (150-400); RED BLOOD CELL COUNT 4.16 10^6/uL (4.18-5.33); RED CELL DISTRIBUTION WIDTH 11.8 % (11.5-15.2)
[2016-10-29 11:09] LABS: ANION GAP 24 mEq/L (8-16); CARBON DIOXIDE 16 mEq/l (22-31); CHLORIDE 99 mEq/L (97-110); CREATININE 0.7 mg/dL (0.6-1.0); GLOMERULAR FILTRATION RATE > 60; GLUCOSE 71 mg/dL (70-100); POTASSIUM 3.7 mEq/L (3.5-5.2); SODIUM 139 mEq/L (134-144)
[2016-10-29 12:04] VITALS: RESP 18; O2SAT 96
[2016-10-29 13:53] LABS: COLOR YELLOW; LEUKOCYTE ESTERASE,URINE 1+ (NEGATIVE); NITRITE,URINE NEGATIVE (NEGATIVE)
[2016-10-29 13:57] LABS: MUCUS TRACE /lpf (NONE-1+); WBC,URINE 15-25 /hpf (0-3)
[2016-10-29 14:46] VITALS: BP 110/70; PULSE 79; TEMP 97.7
== END 2016-10-29 14:44 | disposition home or self-care (01) ==
DX: N30.00 Acute cystitis without hematuria (principal)
CPT/HCPCS: 96374; J2060; J2405

== ENCOUNTER 2017-07-09 20:43 | Emergency (ER) | payer MEDICAID ==
--- NOTE | 2017-07-09 21:16 | EDPHY ---
H & P Stated Complaint: Vaginal bleeding. - Personal History Current Tetanus/Diphtheria Vaccine: Unsure Current Tetanus Diphtheria and Acellular Pertussis (TDAP): Unsure - Medical/Surgical History Hx Asthma: No Hx Chronic Respiratory Disease: No Hx Diabetes: No Hx Cardiac Disease: No Hx Renal Disease: No Hx Cirrhosis: No Hx Alcoholism: No Hx HIV/AIDS: No Hx Splenectomy or Spleen Trauma: No Other PMH: freq utis, pylo. gerd - Social History Smoking Status: Current some day smoker Time Seen by Provider: 07/09/17 21:07 HPI/ROS: CHIEF COMPLAINT: Heavy menstrual bleeding HISTORY OF PRESENT ILLNESS: 31-year-old female status post therapeutic in early April 2017 with concurrent [facility] in [facility] private vehicle complaining of heavy menstrual bleeding and passage of clots for the past 2 weeks. This is the patient's 1st menstrual period since her and IUD placement Soaking a pad approximately every 30 min. Mild dizziness today while at work. 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 No abdominal pain or cramping. No back pain. No trauma. PRIMARY CARE PROVIDER: REVIEW OF SYSTEMS: A ten point review of systems was performed and is negative with the exception of the items mentioned in the HPI PAST MEDICAL & SURGICAL HISTORY: Therapeutic April 2017 with concurrent placement of ParaGard IUD SOCIAL HISTORY:Nonsmoker PHYSICAL EXAM (Prior to examination, patient consented to physical exam, hands were washed and my usual and customary physical exam procedures followed) 1) GENERAL: Well-developed, well-nourished, alert and oriented. Appears to be in no acute distress. 2) HEAD: Normocephalic, atraumatic 3) HEENT: Pupils equal, round, reactive to light bilaterally. Sclera anicteric. [Nasopharynx, oropharynx, clear, no lesions. Moist mucous membrane 4) NECK: Full range of motion, no meningeal signs. 5) LUNGS: Clear auscultation bilaterally, no wheezes, no rhonchi, no retractions. 6) HEART: Regular rate and rhythm, no murmur, no heave, no gallop. 7) ABDOMEN: No guarding, no rebound, no focal tenderness, negative McBurney's, negative Robertson's, negative Rovsing's, negative peritoneal sign, unable to elicit abdominal pain on exam 8) MUSCULOSKELETAL: Moving all extremities, no focal areas of tenderness, no obvious trauma. No peripheral edema or discoloration. 9) BACK: No CVA tenderness. 10) SKIN: No rash, no petechiae. 11) Psychiatric: Patient is oriented X 3, there is no agitation. DIFFERENTIAL DIAGNOSIS: In no particular include but limited to , dysfunctional uterine bleeding, anemia (Ernesto Nassar) Constitutional: Initial Vital Signs Temperature (C) 36.8 C 07/09/17 20:58 Heart Rate 105 H 07/09/17 20:58 Respiratory Rate 16 07/09/17 20:58 Blood Pressure 123/76 H 07/09/17 20:58 O2 Sat (%) 96 07/09/17 20:58 O2 Delivery Mode Room Air Allergies/Adverse Reactions: Sulfa (Sulfonamide Antibiotics) Allergy (Verified 08/30/14 19:51) Home Medications: Medication Instructions Recorded Tranexamic Acid [Lysteda] 1,300 mg PO TID 5 Days tablet 07/09/17 Medical Decision Making ED Course/Re-evaluation: Re-evaluation with serial examinations. Patient's H&H are mildly low. I do not think that hospitalization or transfusion is indicated. Discussed case with secondary supervising physician Dr. aSge Lancaster in the ER. I am starting the patient on oral tranexamic acid, Lysteda. Recommend she contact her OBGYN tomorrow at [facility] (today is Monday). Patient feels comfortable being discharged. (Ernesto Nassar) I did not see this patient while she was in the emergency department. However her care was discussed with the PA while the patient was in the department. I agree with treatment plan and management (Sage Lancaster) - Data Points Laboratory Results: Laboratory Results 07/09/17 21:20 07/09/17 21:20 Medications Given: Discontinued Medications Tranexamic Acid (Tranexamic Acid) 1,300 mg PO ONCE ONE Stop: 07/09/17 21:39 Last Admin: 07/09/17 22:56 Dose: 1,300 mg Departure - Departure Disposition: Home, Routine, Self-Care Clinical Impression: Dysfunctional uterine bleeding Condition: Good Instructions: Tranexamic acid (By mouth), Dysfunctional Uterine Bleeding (ED) Additional Instructions: Return to the ER if you develop abdominal pain, dizziness, increase in vaginal bleeding or any other symptoms that concern you Referrals: Ashley Magana DO [Doctor of Osteopathy] - 2-3 days, call for appt. [facility] [Clinic] - 2-3 days, call for appt. Prescriptions: Tranexamic Acid [Lysteda] 1,300 mg PO TID 5 Days tablet
[2017-07-09 21:27] LABS: PLATELET COUNT 183 10^3/uL (150-400)
[2017-07-09] MEDS ORDERED: TRANEXAMIC ACID 650 MG TAB PO ONE (21:38)
[2017-07-09 22:59] VITALS: BP 114/73
== END 2017-07-09 23:05 | disposition home or self-care (01) ==
DX: N92.0 Excessive and frequent menstruation with regular cycle (principal); F17.200 Nicotine dependence, unspecified, uncomplicated